=== PATIENT | male | born 1935 | race Caucasian/White ===

== ENCOUNTER 2020-06-05 12:17 | Outpatient (NON) | payer MEDICARE, SELFPAY ==
[2020-06-06 01:18] LABS: SARS-CoV-2 RNA PCR Negative
== END 2020-06-05 12:18 ==
PROVIDERS: PCP Family Medicine; Visit Provider Family Medicine
DX: Z20.828 Contact with and (suspected) exposure to other viral communicable diseases (principal); R06.02 Shortness of breath
CPT/HCPCS: 87635; C9803; U0003

== ENCOUNTER 2021-02-08 14:04 | Outpatient (CLI) | payer MEDICARE, SELFPAY ==
--- NOTE | ~2021-02-08 | CT_ITS ---
EXAMINATION: CT IAC/mastoids BI wo con DATE: 02/08/2021 14:43 INDICATION: Otalgia, right ear. TECHNIQUE: Computed tomography (CT) of the temporal bones was performed without intravenous contrast. Automated exposure control and iterative reconstruction technique were employed. The dose-length pro duct was 226.06 mGy-cm. COMPARISON: CT sinuses 06/30/2005 FINDINGS: There are likely changes of right ocular lens replacement surgery. RIGHT TEMPORAL BONE: The internal auditory canal, cochlea, vestibule, semicircular canals, vestibular aqueduct, carotid ca nal, jugular bulb, ossicles, facial nerve course, tympanic membrane, Prussak space, scutum, and exter nal auditory canal are normal. LEFT TEMPORAL BONE: The internal auditory canal, cochlea, vestibule, semicircular canals, vestibular aqueduct, carotid ca nal, jugular bulb, facial nerve course, ossicles, scutum, Prussak space, and tympanic membrane are no rmal. There is a small volume of material in left external auditory canal, likely cerumen. IMPRESSION: 1. Normal temporal bones. Reviewed, dictated and finalized at location A. IMPRESSION: 1. Normal temporal bones.
== END 2021-02-08 14:05 | disposition home or self-care (01) ==
PROVIDERS: PCP Family Medicine; Visit Provider Otolaryngology
DX: H92.01 Otalgia, right ear (principal)
CPT/HCPCS: 70480

== ENCOUNTER 2023-02-04 09:43 | Emergency (ER) | payer OTHER, MEDICARE, SELFPAY ==
--- NOTE | 2023-02-04 09:56 | ED.ANIMALBIT ---
HPI - Animal Bite General Chief Complaint: Animal Bite Stated Complaint: dog bite Time Seen by Provider: 02/04/23 09:56 Source: patient Mode of arrival: ambulatory Limitations: no limitations History of Present Illness HPI narrative: Patient is a 88-year-old male who presents with dog bite to right forearm yesterday. Patient states he washed it with soap and water and use alcohol. Patient states the swelling has gone down slightly using ice but it is still swollen bruised and tender. Patient states that his neighbor's dog and vaccinations are up-to-date. Patient unsure when last tetanus shot was. Denies any numbness tingling or weakness to hand or fingers. Denies any drainage from wounds. Related Data Home Medications Medication Instructions Recorded Confirmed aspirin 81 mg tablet,delayed 81 mg PO DAILY 01/28/21 02/04/23 release (Adult Low Dose Aspirin) lisinopril 40 mg tablet 40 mg PO DAILY 01/28/21 02/04/23 metoprolol succinate 25 mg 25 mg PO DAILY 01/28/21 02/04/23 tablet,extended release 24 hr pantoprazole 40 mg tablet,delayed 40 mg PO QAM 01/28/21 02/04/23 release Allergies Allergy/AdvReac Type Severity Reaction Status Date / Time No Known Allergies Allergy Verified 02/04/23 10:45 Review of Systems Review of Systems: All systems reviewed & are unremarkable except as noted in HPI and below Constitutional: Constitutional: Denies body ache(s), Denies chills, Denies fatigue, Denies fever(s), Denies headache(s), Denies malaise and Denies weakness Eyes: Eyes: Denies blurry vision, Denies irritation and Denies loss of vision ENT: Denies otalgia, Denies headache(s), Denies nasal discharge, Denies sinus pain and Denies sore throat Cardiovascular: Cardiovascular: Denies chest pain, Denies irregular heart rhythm and Denies dyspnea Respiratory: Respiratory: Denies dyspnea Gastrointestinal: Gastrointestinal: Denies abdominal pain, Denies melena, Denies hematochezia, Denies diarrhea, Denies nausea and Denies vomiting Musculoskeletal: Musculoskeletal: Denies back pain, Denies myalgias and Denies arthralgias Integumentary/Breasts: Skin/Breast: Denies pruritus and Denies rash Neurologic: Denies headache(s), Denies loss of vision and Denies weakness Psychiatric: Psychiatric: Reports no additional psychiatric complaints Endocrine: Endocrine: Denies fatigue PMFSH Past Medical History Medical History (Updated 02/04/23 @ 10:54 by Joann Joy APRN) Arthritis Atherosclerosis of aorta 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 Ear pain, right Gastro-esophageal reflux disease without esophagitis Hypertensive chronic kidney disease with stage 1 through stage 4 chronic kidney disease, or unspecified chronic kidney disease Mixed hyperlipidemia Prediabetes Stage 3a chronic kidney disease Surgical History Surgical History (Updated 12/05/22 @ 11:56 by Omari Grider MD) Presence of coronary angioplasty implant and graft Family History Family History Mother Cancer Other Diabetes mellitus Family history of cardiovascular disease Family history of malignant neoplasm Social History Social History (Updated 12/05/22 @ 11:15 by Lilia Miller MA) Smoking status: Former smoker Alcohol intake: never Substance use: never Substance use type: does not use Lack of Transportation: No Lack of Food: Never True Current Housing: I Have Housing Concerned About Future Housing: No Difficulty Paying Gas/Electric Bills: No Difficulty Paying for Meds: No Currently Unemployed: No Education: High School Diploma/GED Difficulty w/ Childcare or Family Care: No Living arrangements: with family Occupation/Education: retired Gender identity (if verbalized by the patient): Male Sexual Orientation (if Verbalized by the Patient): Straight or Heterosexual Comments At time of signature, agree
[2023-02-04 10:14] VITALS: BP 129/74; PULSE 71; RESP 18; TEMP 36.8; O2SAT 98
[2023-02-04] MEDS: TETANUS/DIPHTHERIA TOXOIDS ADSORB 0.5 ML VIAL (*BKC) IM (10:58)
== END 2023-02-04 11:07 | disposition home or self-care (01) ==
PROVIDERS: Emergency Provider Nurse Practitioner Family; PCP Family Medicine
DX: S51.831A Puncture wound without foreign body of right forearm, initial encounter (principal); W54.0XXA Bitten by dog, initial encounter; Z23 Encounter for immunization; Z87.891 Personal history of nicotine dependence; M19.90 Unspecified osteoarthritis, unspecified site; I70.0 Atherosclerosis of aorta; I25.10 Atherosclerotic heart disease of native coronary artery without angina pectoris; I13.10 Hypertensive heart and chronic kidney disease without heart failure, with stage 1 through stage 4 chronic kidney disease, or unspecified chronic kidney disease; N18.31 Chronic kidney disease, stage 3a; R73.03 Prediabetes; K21.9 Gastro-esophageal reflux disease without esophagitis
CPT/HCPCS: 90471; 90714; 99213; G0463

== ENCOUNTER 2023-09-12 13:05 | Outpatient (CLI) | payer MEDICARE, SELFPAY ==
--- NOTE | ~2023-09-12 | XR_ITS ---
XR hip RT 2V w AP pelvis 09/12/2023 13:43 Indication: Left hip pain Procedure: AP pelvis and 2 views right hip Comparison: No prior studies for comparison. Findings: There is bilateral osteoarthritis of the hips. There is lower lumbar spondylosis partially visualized. Pelvic rings are intact. Sacral foramen are symmetric. Impression: 1: Mild bilateral osteoarthritis of the hips. Reviewed, dictated and finalized at location L. Impression: 1: Mild bilateral osteoarthritis of the hips.
--- NOTE | ~2023-09-12 | XR_ITS ---
EXAMINATION: XR lumbar spine min 4V DATE: 09/12/2023 13:43 INDICATION: Low back pain TECHNIQUE: Anteroposterior, lateral, and bilateral oblique views of the lumbar spine, and cone-down l ateral view of the lumbosacral junction were obtained. COMPARISON: None. FINDINGS: Bone alignment is normal. There is no fracture. There is moderate loss of intervertebral di sc space height at L1-2 and L4-5. The vertebral body heights are maintained. There is severe facet radha int osteoarthritis at L4-5 and L5-S1. Surgical clips in the right upper quadrant are likely from prio r cholecystectomy. 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 IMPRESSION: 1. Moderate lumbar spondylosis without acute findings. Reviewed, dictated and finalized at location F.
--- NOTE | ~2023-09-12 | XR_ITS ---
XR knee RT 3V 09/12/2023 13:43 Indication: Right knee pain Procedure: 3 views right knee Comparison: No prior studies for comparison. Findings: Moderate joint effusion. Moderate tricompartment osteoarthritis. No fracture or traumatic m alalignment. No foreign bodies. Impression: 1: Moderate tricompartment osteoarthritis of the right knee. 2: Moderate knee effusion. Reviewed, dictated and finalized at location L. Impression: 1: Moderate tricompartment osteoarthritis of the right knee. 2: Moderate knee effusion.
== END 2023-09-12 13:06 | disposition home or self-care (01) ==
PROVIDERS: PCP Family Medicine; Visit Provider Family Medicine
DX: M25.561 Pain in right knee (principal); M54.30 Sciatica, unspecified side; M25.552 Pain in left hip; M43.06 Spondylolysis, lumbar region; M17.11 Unilateral primary osteoarthritis, right knee; M25.461 Effusion, right knee; M16.0 Bilateral primary osteoarthritis of hip
CPT/HCPCS: 72110; 73502; 73562

== ENCOUNTER 2023-11-30 13:00 | Outpatient (RCR) | payer MEDICARE, SELFPAY ==
--- NOTE | 2023-10-26 14:51 | PTOPEVAL1 ---
Assessment and note entered by Vinnie Wynn Evaluation Information Assessment Status Evaluation Diagnosis right knee pain, right knee OA Onset 04/19/23 Subjective Information Pt. reports that his right knee pain increased around 6 months ago. He reports that he was working on his basement recently, crawling on his knees, and noticed significant pain increase. He describes pain along the outside and inside of the right knee joint. He states that pain is increased with walking, stairs and long periods of standing. He reports that he had a recent injection which helped to reduce pain. He did undergo x-ray and states that he was told he is bone on bone. He reports that he is very active and states that his knee pain is making usual household activities difficult. He reports that he is having trouble standing off the toilet due to knee pain. he reports that his goal is to reduce his knee pain. Reported Pain Level Pain Score 4: Self Report Assessment PT Clinical Summary Pt. is an 88 year old male who enters the clinic with right knee pain due to OA. He presents with impaired gait, impaired knee active ROM, impaired l.e. strength, impaired flexibility and pain. Continued skilled PT is indicated in order to improve these areas to allow the pt. to be able to complete all IADL 's with improved comfort and efficiency. Plan of Care Interventions Electrical Stimulation,Gait Training,Hot Pack/Cold Pack,Manual Therapy,Neuro Re-education,Patient/ Caregiver Education,Therapeutic Activities, Therapeutic Exercise PT Services Indicated Yes Treatment Frequency and 2x/week x 8 visits Duration These treatments will address the objective and functional deficits as defined above. The patient will be advanced safely and appropriately in order for the patient to progress towards his/her prior level of function. Additional exercises will be introduced and as well as a comprehensive home exercise program upon discharge, if needed, ?to ensure carryover of functional gains achieved in the clinic. This treatment plan has been reviewed and agreement upon by the patient.
--- NOTE | 2023-10-26 14:52 | OPREHPOC ---
Outpatient Therapy Plan of Care This is a Multidisciplinary Plan of Care that may contain components documented by all disciplines (PT, OT, and ST.) PT Problem 1 PT Problem #1 Knowledge Deficit PT Goal 1 Goal Pt. will be independent with a HEP addressing strength and mobility Target Visit 2 PT Problem 2 PT Problem #2 Impaired Gait PT Goal 1 Goal Pt. will demonstrate equal right and left stance time with gait for 6 minute duration over a distance of 800' or more. Target Visit 8 PT Problem 3 PT Problem #3 Impaired Range of Motion PT Goal 1 Goal Pt. will achieve 0-125 degrees right knee active ROM to assist with improve tolerance to squatting and kneeling activities. Target Visit 8 PT Problem 4 PT Problem #4 Impaired Functional Mobil PT Goal 1 Goal Pt. will demonstrate 25% limitation or less with the LEFS indicating improved overall function. Target Visit 8
--- NOTE | 2023-11-30 13:53 | PTOPDC ---
Assessment and note entered by Vinnie Wynn Evaluation Information Assessment Status Discharge Diagnosis right knee pain, right knee OA Onset 04/19/23 Subjective Information Pt. reports that his right knee pain continues to fluctuate. He states that he notices little to no improvement since beginning therapy. He states that he will continue with exercise to maintain mobility in the right knee. Reported Pain Level Pain Score 3: Self Report Assessment PT Clinical Summary Pt. has attended a total of 7 treatment sessions. He demonstrates slight progress in regards to strength and mobility, however still provides consisted pain reports. At this time recommend the pt. continue with his HEP and follow up with his doctor regarding other options to address pain . Plan of Care PT Services Indicated No
== END 2023-11-30 15:11 | disposition home or self-care (01) ==
LOC: ANHPT 13:00
PROVIDERS: PCP Family Medicine; Visit Provider Orthopaedic Surgery
DX: M17.11 Unilateral primary osteoarthritis, right knee (principal)
CPT/HCPCS: 97014; 97016; 97110; 97140; 97161; G0283

== ENCOUNTER 2023-12-11 04:30 | Emergency (ER) | payer MEDICARE, SELFPAY ==
--- NOTE | ~2023-12-11 | XR_ITS ---
Portable chest x-ray Comparison: 08/16/2018 Clinical History: Cough Findings: Lungs are clear, without focal consolidation or pleural effusion. COPD pattern present. C ardiomediastinal silhouette is stable. Bones and soft tissues are unremarkable. Impression: COPD. Clear lungs. Reviewed, dictated and finalized at location . Impression: COPD. Clear lungs.
[2023-12-11 04:39] VITALS: BP 156/88; PULSE 69; PULSE 77; RESP 13; TEMP 37.1; O2SAT 100; O2SAT 98
--- NOTE | 2023-12-11 04:49 | ECG_ITS ---
Test Date: 2023-12-11 04:55:36 Measurements Intervals [place] Rate: 73 P: 58 DC: 182 QRS: 19 QRSD: 103 T: 64 QT: 384 QTc: 423 Interpretive Statements SINUS RHYTHM EARLY R-WAVE TRANSITION BORDERLINE ECG No previous ECG available for comparison Electronically Signed On 12-11-2023 07:29:35 CDT by Vinnie Piedra M.D.
[2023-12-11] MEDS: guaiFENesin/DEXTROMETHORPHAN 10 ML UDC PO (04:51)
[2023-12-11 05:11] LABS: Basophils Absolute Auto 0.1 K/mm3 (0.0-0.1); Basophils Percent Auto 0.6 % (0.2-1.2); Eosinophils Absolute Auto 0.4 K/mm3 (0-0.3); Eosinophils Percent Auto 4.8 % (0-4.4); Hematocrit 41.3 % (42.0-52.0); Hemoglobin 13.8 g/dL (14.0-18.0); Immature Granulocyte Absolute 0.04 K/mm3 (0.00-0.031); Immature Granulocyte Percent A 0.5 % (0-0.5); Lymphocytes Absolute Auto 1.93 K/mm3 (0.9-3.2); Lymphocytes Percent Auto 22.8 % (18.3-44.2); Mean Corpuscular HGB Conc 33.4 g/dl (32-36); Mean Corpuscular Hemoglobin 29.7 pg (26-34); Mean Platelet Volume 9.4 fl (7.4-10.4); Monocytes Absolute Auto 0.7 K/mm3 (0.1-0.6); Neutrophils Absolute Auto 5.4 K/mm3 (1.3-6.7); Neutrophils Percent Auto 63.3 % (45.5-73.1); Platelet Count Result 253 k/mm3 (150-375); Red Blood Count 4.64 M/mm3 (4.6-6.20); Red Cell Distribution Width 12.9 % (11.5-14.5); White Blood Count 8.5 K/mm3 (4.5-10.0)
[2023-12-11 05:15] VITALS: BP 124/80; PULSE 69; RESP 13; O2SAT 98
[2023-12-11 05:25] LABS: Alanine Aminotransferase 18 U/L (6-50); Albumin Level 4.4 g/dL (3.5-5.1); Alkaline Phosphatase 69 U/L (38-126); Anion Gap 12 mmol/L (4-12); Aspartate Amino Transferase 22 U/L (17-59); Bilirubin,Total 0.7 mg/dL (0.2-1.3); Blood Urea Nitrogen 30 mg/dL (9-20); Calcium 9.2 mg/dL (8.4-10.2); Carbon Dioxide 22 mmol/L (22-30); Chloride 105 mmol/L (98-107); Estimated CRCL calculation 41 ml/min; Estimated Glomerular Filt Rate 57; Glucose 122 mg/dL (65-110); Potassium 4.1 mmol/L (3.4-5.0); Sodium 139 mmol/L (137-145)
[2023-12-11 05:28] LABS: Influenza A QL RT-PCR Negative (Negative); Influenza B QL RT-PCR Negative (Negative); RSV RNA, RT-PCR Negative (Negative); SARS-CoV-2 RNA PCR Negative (Negative)
[2023-12-11 05:34] LABS: NT Pro B Type Natriuretic Pept 149 pg/mL (19.9-100)
--- NOTE | 2023-12-11 05:42 | ED.GENADULT ---
HPI - General Adult General Chief complaint: Upper Respiratory Infection Stated complaint: cough, wheezing Time Seen by Provider: 12/11/23 04:37 History of Present Illness HPI narrative: this is an 88-year-old male presenting with cough x 4-5 days. He has productive white sputum. He has seen his primary care physician for this and was prescribed doxycycline which she completed without any back. Patient notices that sometimes he has trouble coughing up the sputum is very thick. He denies fevers chills chest pain difficulty breathing or abdominal pain. Related Data Home Medications Medication Instructions Recorded Confirmed aspirin 81 mg tablet,delayed 81 mg PO DAILY 01/28/21 12/07/23 release (Adult Low Dose Aspirin) diphenhydramine 25 1 tablet PO QHS PRN 10/24/23 12/07/23 mg-acetaminophen 500 mg tablet (Tylenol PM Extra Strength) metoprolol tartrate 25 mg tablet 12.5 mg PO BID 12/07/23 12/07/23 Allergies Allergy/AdvReac Type Severity Reaction Status Date / Time No Known Allergies Allergy Verified 11/23/23 08:31 [facility] Past Medical History Medical History Arthritis Atherosclerosis of aorta Atherosclerosis of jamul coronary artery of jamul heart without angina pectoris Ear pain, right Gastro-esophageal reflux disease without esophagitis Hypertensive chronic kidney disease with stage 1 through stage 4 chronic kidney disease, or unspecified chronic kidney disease Mixed hyperlipidemia Prediabetes Stage 3a chronic kidney disease Surgical History Surgical History Presence of coronary angioplasty implant and graft Family History Family History Mother Cancer Other Diabetes mellitus Family history of cardiovascular disease Family history of malignant neoplasm Social History Social History Smoking status: Former smoker Alcohol intake: never Substance use: never Substance use type: does not use Do You Feel Safe in your Home?: Yes Lack of Transportation: No Lack of Food: Never True Current Housing: I Have Housing Concerned About Future Housing: No Difficulty Paying Gas/Electric Bills: No Difficulty Paying for Meds: No Currently Unemployed: No Education: High School Diploma/GED Difficulty w/ Childcare or Family Care: No Living arrangements: with family Occupation/Education: retired Gender identity (if verbalized by the patient): Male Sexual Orientation (if Verbalized by the Patient): Straight or Heterosexual Exam Narrative: APPEARANCE: No apparent distress. Head: atraumatic. EYES: EOMI, NOSE: Atraumatic NECK: Trachea midline RESPIRATORY: No increased rate of breathing, Speaking in full sentences, scattered rhonchi CARDIOVASCULAR: RRR, no peripheral edema ABDOMINAL: Non-distended soft nontender MUSCULOSKELETAl: No obvious deformities NEURO: Alert. Moving 4/4 extremities SKIN:: Warm, dry. Normal color PSYCHIATRIC: Normal affect Course Vital Signs Vital signs: Vital Signs Temperature 98.7 F 12/11/23 04:39 Pulse Rate 77 12/11/23 04:39 Respiratory Rate 13 12/11/23 04:39 Blood Pressure 156/88 H 12/11/23 04:39 Pulse Oximetry 100 12/11/23 04:39 Oxygen Delivery Room Air 12/11/23 04:39 Temperature 98.7 F 12/11/23 04:39 Pulse Rate 77 12/11/23 04:39 Respiratory Rate 13 12/11/23 04:39 Blood Pressure 156/88 H 12/11/23 04:39 Pulse Oximetry 100 12/11/23 04:39 Oxygen Delivery Room Air 12/11/23 04:39 Medical Decision Making MDM Narrative Medical decision making narrative: -Course: 88-year-old male presenting with 5 days of cough. patient is well-appearing without fevers. White count is normal. Chest x-ray without evidence of pneumonia. Patient likely has bronchitis. He notes that the cou
[2023-12-11 05:45] VITALS: BP 124/71; PULSE 66; RESP 98; O2SAT 13
== END 2023-12-11 06:40 | disposition home or self-care (01) ==
PROVIDERS: Emergency Provider Emergency Medicine; PCP Family Medicine
DX: J40 Bronchitis, not specified as acute or chronic (principal); E78.2 Mixed hyperlipidemia; I12.9 Hypertensive chronic kidney disease with stage 1 through stage 4 chronic kidney disease, or unspecified chronic kidney disease; N18.31 Chronic kidney disease, stage 3a; I25.10 Atherosclerotic heart disease of native coronary artery without angina pectoris; Z20.822 Contact with and (suspected) exposure to COVID-19; Z87.891 Personal history of nicotine dependence
CPT/HCPCS: 36415; 71045; 80053; 83880; 85025; 87637; 93005; 99283; A9270

== ENCOUNTER 2024-09-02 07:55 | Outpatient (CLI) | payer MEDICARE, SELFPAY ==
--- NOTE | ~2024-09-02 | MR_ITS ---
MR brain/brain stem wo con Ordering provider: Omari Grider MD History: 89 years Male with . G45.9 - Transient cerebral ischemic attack, unspecified . Comparison: June 28, 2013 Technique: MRI brain was performed without contrast. FINDINGS: BONES: Normal. CRANIOCERVICAL JUNCTION: normal. PITUITARY: Normal. MAJOR INTRACRANIAL VESSELS: Normal flow void. OPTIC NERVES AND CRANIAL NERVES VII AND VIII COMPLEXES: Grossly normal. BRAIN PARENCHYMA AND CSF SPACES: Mild nonspecific T2 white matter hyperintensities are seen in a alexia ateral periventricular and deep white matter distribution which are likely related to chronic ischemi c small vessel disease. Mild diffuse cortical atrophy. Old lacunar infarct in the right cerebellar h emisphere. The brainstem and cerebellum are normal. No acute or chronic intracranial hemorrhage. No e xtra axial fluid collections. Diffusion weighted and ADC mapping images reveal no recent ischemia. No midline shift or mass effect. PARANASAL SINUSES: Bilateral ethmoid sinus disease. MASTOIDS: Left mastoid air cells effusion. The SUPERFICIAL/SURROUNDING SOFT TISSUES: Normal. IMPRESSION: 1. No evidence of acute infarct or hemorrhage. 2. 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 3. Deep white matter ischemic changes with mild brain atrophy. Reviewed, dictated and finalized at location A.
--- OUTSIDE RECORDS SUMMARY | 2024-09-02 08:02 | XMS_ITS | Patient Health Summary ---
Author Organization [facility] [employer] Address [address] [place] [address] Care Team Providers Care Funeral Arrangement Director Name Role Phone Brii Benitez MD Primary Care Provider [phone] Note from [facility],non-owned Affiliates and Associated Physician Practices is amultiple site organization consisting of ambulatory clinics and hospital sitesin [place], [place], [place] and [place]. This disclosure is being madepursuant to the Care Everywhere program and may not contain all information available regarding this patient. Last updated 18.[facility] [employer] Allergies No known active allergies Medications * Be aware that medications may not be up to date on this document. Alwaysverify current medications with the patient. * lisinopril (PRINIVIL; ZESTRIL) 40 MG tablet Take 40 mg by mouth once daily. * metoprolol tartrate IR (LOPRESSOR) 25 MG tablet Take 25 mg by mouth 2 times daily. * clopidogrel (PLAVIX) 75 MG tablet Take 75 mg by mouth once daily. * simvastatin (ZOCOR) 80 MG tablet Take 80 mg by mouth at bedtime. * aspirin 81 MG chew tablet Take 81 mg by mouth once daily. * pantoprazole (PROTONIX) 40 MG packet Take 40 mg by mouth once daily. * niacin CR (NIASPAN) 1000 MG tablet Take 1,500 mg by mouth at bedtime. Social History Tobacco Use Types Packs/Day Years Used Date Smoking Tobacco: Former Tobacco Cessation:Counseling Given: Yes Comments:QUIT 29 YEARS AGO Alcohol Use Standard Drinks/Week Comments No 0 (1 standard drink = 0.6 oz pur e alcohol) Sex and Gender Information Value Date Recorded Sex Assigned at Not on file Gender Identity Not on file Sexual Orientation Not on file Last Filed Vital Signs Vital Sign Reading Time Taken Comments Blood Pressure 112/65 08/17/2011 1:30 PM [employer] Pulse 59 08/17/2011 1:30 PM [employer] Temperature 37.1 C (98.7 F) 08/17/2011 8:54 AM [employer] Respiratory Rate 18 08/17/2011 1:30 PM [employer] Oxygen Saturation 96% 08/17/2011 1:30 PM [employer] Inhaled Oxygen Concentration - - Weight 83 kg (183 lb) 08/17/2011 8:54 AM [employer] Height 182.9 cm (6') 08/17/2011 8:54 AM [employer] Body Mass Index 24.82 08/17/2011 8:54 AM [employer] Procedures * CARDIAC EKG ORDER(Performed 09/01/2011) * LAB RESULTS ORDER(Performed 09/01/2011) * CARDIAC PROCEDURE ORDER(Performed 09/01/2011) * CARDIAC CATH CONSULT(Performed 08/17/2011) Results * LAB RESULTS ORDER (09/01/2011 2:37 PM CDT) Narrative Transcriptions Document, Scanned - 09/01/2011 2:36 PM CDT Scanned Document LAB - THERAPEUTIC DR UG MONITORING ORDERABLES * CARDIAC EKG ORDER (09/01/2011 2:37 PM CDT) Narrative Transcriptions Document, Scanned - 09/01/2011 2:36 PM CDT Scanned Document CARDIAC SERVICES ORD ERABLES * CARDIAC PROCEDURE ORDER (09/01/2011 2:37 PM CDT) Narrative Transcriptions Document, Scanned - 09/01/2011 2:36 PM CDT Scanned Document CARDIAC SERVICES ORD ERABLES * CARDIAC CATH CONSULT (08/17/2011) 08/17/2011 Narrative Transcriptions Brii Benitez MD - 08/17/2011 2:08 PM CST [facility] Cardiac Cath [facility] CARDIAC CATHETERIZATION PATIENT: [facility]#: [id number] ADMIT DATE: 08/17/2011CCT#: [id number] PROCEDURE DATE: 08/17/2011DOB: 1935 PHYSICIAN: Brii Benitez, MDROOM: DPHCCCL REFERRING PHYSICIAN: BRII BENITEZ PROCEDURE: 1.Left heart catheterization. 2.Left coronary angiography. 3.Left ventriculography. 4.Ascending aortography. 5.Vascular access closure. INDICATION FOR PROCEDURE: Coronary artery disease, recurrent restingchest pain. INDICATION: This is a 76-year-old patient with a history of coronaryartery disease and prior stenting of the left anterior descending and theright coronary artery in 2004. He now has recurrent episodes of chestpain occurring at rest. It partially resolves with nitroglycerin. Healready had been on Protonix. He had upper endoscopy which wasunrevealing. He was then referred for angiography. PROCEDURE IN DETAIL: After obtaining informed consent, the patient wasbrought to the cardiac catheterization lab suite. He was prepped anddraped in the usual sterile fashion. Vascular access was obtained usingthe modified Seldinger technique. A #5 Fr sheath was inserted in theright femoral artery. Selective coronary cannulation was performed usingstandard Jonatan catheters. Left ventriculography was performed in theRAO projection using a pigtail, followed by left heart pullback.Ascending aortography was performed in the SAMI projection. At the end ofthe procedure, the sheath was removed and vascular access was closed usingAngio-Seal with good hemostasis. HEMODYNAMICS: LV Pressure: 125/10. Ascending Aortic Pressure: 125/70. LEFT VENTRICULOGRAPHY: Left ventriculography showed normal systolic wallmotion. Estimated ejection fraction is 65%. ASCENDING AORTOGRAPHY: This was performed to rule out aortic pathology asa cause of his chest discomfort. This showed a normal thoracic aortawithout evidence of dissection. There is no aortic insufficiency. CORONARY ARTERIES: The dominant right coronary artery had an upwardtakeoff with hicks's crook angulation. There is 40% mid stenosis andtandem 30% distal lesions. The distal vessel gives a medium sizedposterior descending branch which had patent stents in the proximalvessel. It gives a first small posterolateral branch and then a largesecond posterolateral branch. The posterolateral branch of the rightcoronary artery was angiographically normal. The left main coronary artery was angiographically normal. The large hightakeoff first obtuse marginal had 30% proximal stenosis. The secondobtuse marginal is a medium sized branching vessel that isangiographically normal. The distal vessel gives off small branches. Theleft anterior descending had 20% ostial stenosis. There is diffusecalcifications in the mid vessel associated with 40% stenosis. Thepreviously implanted stent in the distal vessel after the second diagonalwas widely patent. The rest of the left anterior descending had milddisease. IMPRESSION: 1.Angiographically mild to intermediate coronary artery disease withpatent previously implanted stents in the left anterior descending and theposterior descending artery branch of the right coronary artery.2.Normal left ventricular systolic function. 3.Normal left ventricular end-diastolic pressure. 4.Normal thoracic aortogram. 5.Successful vascular access closure. CARE PLAN: There are no high grade lesions to warrant intervention.Continuation of medical therapy is recommended. BRII BENITEZ MD SRB/JT #: [id number] CC:MD MANJIT DOYLE MD MEDICAL/SURGICAL CARDIAC CATHETERIZATION - DP Brii Benitez MD ECHO ORDERABLES [facility] Care Teams Funeral Arrangement Director Relationship Specialty [place] [id number] [facility] [place] [address] [place] [id number] PCP - General 08/17/11
--- OUTSIDE RECORDS SUMMARY | 2024-09-02 08:02 | XMS_ITS | Referral Summary ---
Author Organization [facility] Address [address] [place] [address] Care Team Providers Care Merchandising Internship Name Role Phone Fabricio Benitez MD Primary Care Provider Source Comments [facility],non-owned Affiliates and Associated Physician Practices is amultiple site organization consisting of ambulatory clinics and hospital sitesin [place], [place], [place] and [place]. This disclosure is being madepursuant to the Care Everywhere program and may not contain all information available regarding this patient. Last updated 18.[facility] Allergies No known active allergies Medications * Be aware that medications may not be up to date on this document. Alwaysverify current medications with the patient. Medication Sig Dispensed Refills Start Date End Date Status lisinopril (PRINIVIL; ZESTRIL) 40 MG tablet Take 40 mg by mouth once daily. Active metoprolol tartrate IR (LOPRESSOR) 25 MG tablet Take 25 mg by mouth 2 times daily. Active clopidogrel (PLAVIX) 75 MG tablet Take 75 mg by mouth once daily. Active simvastatin (ZOCOR) 80 MG tablet Take 80 mg by mouth at bedtime. Active aspirin 81 MG chew tablet Take 81 mg by mouth once daily. Active pantoprazole (PROTONIX) 40 MG packet Take 40 mg by mouth once daily. Active niacin CR (NIASPAN) 1000 MG tablet Take 1,500 mg by mouth at bedtime. Active Social History Tobacco Use Types Packs/Day Years [...] Comments Blood Pressure 112/65 08/17/2011 1:30 PM NUCLEAR WORKER TECHNICIAN Pulse 59 08/17/2011 1:30 PM NUCLEAR WORKER TECHNICIAN Temperature 37.1 C (98.7 F) 08/17/2011 8:54 AM NUCLEAR WORKER TECHNICIAN Respiratory Rate 18 08/17/2011 1:30 PM NUCLEAR WORKER TECHNICIAN Oxygen Saturation 96% 08/17/2011 1:30 PM NUCLEAR WORKER TECHNICIAN Inhaled Oxygen Concentration - - Weight 83 kg (183 lb) 08/17/2011 8:54 AM NUCLEAR WORKER TECHNICIAN Height 182.9 cm (6') 08/17/2011 8:54 AM NUCLEAR WORKER TECHNICIAN Body Mass Index 24.82 08/17/2011 8:54 AM NUCLEAR WORKER TECHNICIAN Plan of Treatment Not on file Care Teams Merchandising Internship Relationship Specialty Start [place] [id number] [id number] PCP - General 08/17/11
--- OUTSIDE RECORDS SUMMARY | 2024-09-02 08:02 | XMS_ITS | Continuity of Care Document ---
Author Organization [facility] Address [address] [place] [address] Phone Care Team Providers Care Project Economist Name Role Phone Collin Powers MD Unavailable Unavailable Advance Directives Directive Yes / No Effective Date File Name No Information Encounters Encounter Description Practice Location Reason(s) For Visit Diagnoses Date Provider Providers Copied on Encounter [facility], [id number] [place] [address] [address], [place], [place], [id number], [place] tel:[phone] [address] [facility] No Information Feb-2 6-200 6 Priya Polanco. [address], [place], [place], [id number], [place]. tel:[phone] Family History Family Member Type Diagnosis Age At Onset No Information Payers Payer name Insurance type Covered alliance party ID Authoriza tion(s) [place] [id number] Social History Type Description Quantity Date Captured Comments Sex Male Smoking Status No Information Chief Complaint And Reason For Visit No Information Reason For Referral Reason For Referral No Information History Of Present Illness Encounter Date Complaint History Of Prese nt Illness No Information Functional Status Date Functional Assessmen t No Information Instructions Date Instruction Additional Infor mation No Information Assessments Type Assessment Date No Information Patient Care Teams Name Effective Dates (start - stop) Status Members No Information
--- OUTSIDE RECORDS SUMMARY | 2024-09-02 08:02 | XMS_ITS | Clinical Summary ---
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 Gender Identity Not on file Sexual Orientation Not on file Plan of Treatment Health Maintenance Due Date Last Done Comments Hepatitis C Virus (HCV) Screening 1935 Zoster Immunization (1 of 2) 01/28/1986 Respiratory Syncytial Virus (RSV) Immunization (Adult) (1 - 1-dose 75+ series) 01/28/2011 Pneumococcal Immunization (50+ years) (2 of 2 - PPSV23) 03/20/2019 03/20/2018, 03/15/2015 Influenza Immunization (#1) 02/18/202410/2019, 03/26/2019, 03/16/2018, Additional history exists SARS-COV-2 Immunization ( season) 2024 DTaP/Tdap/Td Immunization Discontinued 06/18/2015 TdaP Immunization Completed 06/18/2015 Pneumococcal Immunization Combined Discontinued 03/20/2018, 03/15/2015 Hepatitis B Immunization Aged Out No longer eligible based on patient's age to complete this topic Meningococcal Immunization (ACWY) Aged Out No longer eligible based on patient's age to complete this topic Rotavirus Immunization Aged Out No lo nger eligible based on patient's age to complete this topic
--- OUTSIDE RECORDS SUMMARY | 2024-09-02 08:02 | XMS_ITS | Clinical Summary ---
Author Organization [facility] Address [address] [place] [address] Care Team Providers Care Supervisor Tubing Name Role Phone Fabricio Benitez MD Primary Care Provider [phone] Source Comments [facility],non-owned Affiliates and Associated Physician Practices is amultiple site organization consisting of ambulatory clinics and hospital sitesin [place], [place], [place] and [place]. This disclosure is being madepursuant to the Care Everywhere program and may not contain all information available regarding this patient. Last updated 18.[facility] Allergies No known active allergies Medications * [...] Comments Blood Pressure 112/65 08/17/2011 1:30 PM HIDE COOKING OPERATOR Pulse 59 08/17/2011 1:30 PM HIDE COOKING OPERATOR Temperature 37.1 C (98.7 F) 08/17/2011 8:54 AM HIDE COOKING OPERATOR Respiratory Rate 18 08/17/2011 1:30 PM HIDE COOKING OPERATOR Oxygen Saturation 96% 08/17/2011 1:30 PM HIDE COOKING OPERATOR Inhaled Oxygen Concentration - - Weight 83 kg (183 lb) 08/17/2011 8:54 AM HIDE COOKING OPERATOR Height 182.9 cm (6') 08/17/2011 8:54 AM HIDE COOKING OPERATOR Body Mass Index 24.82 08/17/2011 8:54 AM HIDE COOKING OPERATOR Plan of Treatment Health Maintenance Due Date Last Done Comments DTAP/TDAP/TD VACCINES (1 - Tdap) 01/28/1954 PNEUMOCOCCAL VACCINE 50+ (1 of 1 - PCV) 01/28/1986 ZOSTER VACCINE (1 of 2) 01/28/1986 Respiratory Syncytial Virus (RSV) Vaccine Pt: or over 60 yrs (1 - 1-dose 75+ series) 01/28/2011 COVID-19 VACCINE ( - 2023-2 5 season) 2024 INFLUENZA VACCINE (#1) 2024 DEPRESSION SCREENING 06/19/2024 HEPATITIS B VACCINE Aged Out No longe r eligible based on patient's age to complete this topic HIB VACCINE Aged Out No longer eligi ble based on patient's age to complete this topic HPV VACCINE Aged Out No longer eligi ble based on patient's age to complete this topic MENINGOCOCCAL (Group B) VACC INE SHARED DECISION-MAKING Aged Out No longer eligibl e based on patient's age to complete this topic MENINGOCOCCAL GROUPS A/C/Y/W VACCINE Aged Out No longer eligible b ased on patient's age to complete this topic Care Teams Supervisor Tubing Relationship Specialty [place] [id number] [facility] [address] [place] [address] PCP - General 08/17/11
--- OUTSIDE RECORDS SUMMARY | 2024-09-02 08:03 | XMS_ITS | Referral Summary ---
Author Organization [facility] [address] Address [address] [place] [address] Care Team Providers Care Diagram Clerk Name Role Phone Omari Grider MD Primary Care Provider [phone] Allergies No known active allergies Medications lisinopril (PRINIVIL,ZESTR [place]) 40 mg tablet take 1 tablet (40MG) by oral route every day 0 12/21/[address] (PROTONIX) 40 mg EC tablet take 1 tablet (40MG) by oral route every day 0 12/21/2010 Active diphenhydrAMINE -acetaminophen (TYLENOL PM EXTRA STRENGTH) 25-500 mg tablet take 1 tablet by oral route every day at bedtime 0 0 03/16/2015 Active aspirin (ADULT LOW DOSE ASPIRIN) 81 mg enteric coated tablet Take 1 tablet (81 mg total) by mouth daily 09/13/2018 Active melatonin 10 mg tablet Active rosuvastatin (CRESTOR) 20 mg tablet 12/01/2021 Active amLODIPine (NORVASC) 2.5 mg tablet 10/05/2022 Active metoprolol tartrate (LOPRESSOR) 25 mg immediate release tablet Take 0.5 tablets (12.5 mg total) by mouth 2 (two) times a day Active Active Problems Problem Noted Date Diagnosed Date At risk for falls 12/14/2022 Bradycardia 12/14/2022 Raynaud's phenomenon 07/13/2020 Dizziness 03/20/2019 GERD (gastroesophageal reflux disease) 9 Palpitations 09/13/2018 History of tobacco abuse 01/03/2018 S/P coronary artery stent placement 01/03/2018 Abdominal discomfort, epigastric 01/03/2018 Benign hypertension 12/30/2015 Overview (09/23/2016): HTN (hypertension), benign Coronary artery disease 07/01/2014 Overview (09/23/2016): Coronary arteriosclerosis in [place] artery Mixed hyperlipidemia 07/01/2014 Overview (09/23/2016): Mixed hyperlipidemia Resolved Problems Problem Noted Date Diagnosed Date Resolved Date Dyslipidemia 12/30/2015 07/26/2021 Overview (09/23/2016): Dyslipidemia Presence of stent in coronary artery 03/16/2015 03/20/2019 Overview (09/23/2016): S/P coronary artery stent placement Benign essential hypertension 07/01/2014 01/19/2021 Overview (09/23/2016): Benign essential hypertension Tobacco use 07/01/2014 12/02/2021 Overview (09/23/2016): Tobacco user Social History Tobacco Use Types Packs/Day Years Used Date Smoking Tobacco: Former Cigarettes Q uit: 1992 Smokeless Tobacco: Former Tobacco Cessation:Counseling Given: Not Answered Alcohol Use Standard Drinks/Week Comments No 0 (1 standard drink = 0.6 oz pur e alcohol) AUDIT-C Answer Date Recorded Q1: How often do you have a drink containing alc ohol? Never 04/18/2022 Average Number of Drinks Not on file 022 Frequency of Binge Drinking Not on file 03/21 Sex and Gender Information Value Date Recorded Sex Assigned at Not on file Legal Sex Male 7:[address] RE[address] Gender Identity Not on file Sexual Orientation Not on file Last Filed Vital Signs Vital Sign Reading Time Taken Comments Blood Pressure 124/60 03/05/2024 1:51 PM CDT Pulse 73 03/05/2024 1:51 PM CDT Temperature 36.8 C (98.2 F) 04/18/2022 1:06 PM CDT Respiratory Rate - - Oxygen Saturation 96% 03/05/2024 1:51 PM CDT Inhaled Oxygen Concentration - - Weight 75.8 kg (167 lb) 03/05/2024 1:51 PM CDT Height 182.9 cm (6') 03/05/2024 1:51 PM CDT Body Mass Index 22.65 03/05/2024 1:51 PM CDT Plan of Treatment Not on file Insurance MEDICARE [facility] Address: [address] [place], [place] [id number] [facility] Address: [address] [address] [place] [address] MEDICARE [employer] Care Teams Diagram Clerk Relationship Specialty Start Date End Date Omari Grider MD [address] [place] [id number] PCP - General 09/20/16
--- OUTSIDE RECORDS SUMMARY | 2024-09-02 08:03 | XMS_ITS | Clinical Summary ---
Author Organization [facility] [address] Address [address] [place] [address] Care Team Providers Care Shipping Receiving Manager Name Role Phone Omari Grider MD Primary Care Provider [phone] Allergies No known active allergies Medications lisinopril [...] disease 07/01/2014 Overview (09/23/2016): Coronary arteriosclerosis in [place] artery Mixed hyperlipidemia 07/01/2014 Overview (09/23/2016): Mixed hyperlipidemia Resolved Problems Problem Noted Date Diagnosed Date Resolved Date Dyslipidemia 12/30/2015 07/26/2021 Overview (09/23/2016): Dyslipidemia Presence of stent in coronary artery 03/16/2015 03/20/2019 Overview (09/23/2016): S/P coronary artery stent placement Benign essential hypertension 07/01/2014 01/19/2021 Overview (09/23/2016): Benign essential hypertension Tobacco use 07/01/2014 12/02/2021 Overview (09/23/2016): Tobacco user Surgical History Surgery Date Site/Laterality Comments CHOLECYSTECTOMY 06/19/1989 - 06/18/1990 HERNIA REPAIR 06/19/2018 - 06/18/2019 Medical History Medical History Date Comments Sinusitis Sinusitis Hx Other Medical Diverticulosis Gastroesophageal reflux disease GERD HTN (hypertension) Arthritis Family History Medical History Relation Name Comments No Known Problems Father Cancer Mother Heart disease Other 2 heart disease; Colon polyps Son Relation Name Status Comments Father Mother Other 1 Alive Other 2 Son Alive Social History Tobacco Use Types Packs/Day Years Used Date Smoking Tobacco: Former Cigarettes Q uit: 1991 Smokeless Tobacco: Former Tobacco Cessation:Counseling Given: Not [...] on file 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 Gender Identity Not on file Sexual Orientation Not on file Obstetrics History Last Filed Vital Signs Vital Sign Reading [...] 03/05/2024 1:51 PM CDT Plan of Treatment Health Maintenance Due Date Last Done Comments Depression Screening 1935 Fall Risk Assessment 1935 Hepatitis B Screening 01/28[birth year]1954 Well Visit 65+ 01/28/2001 Pneumococcal vaccine 65+ (2 of 2 - PPSV23) 03/20/2019 03/20/2018, 08/08/2017, 03/15/2015, Additional history exists Influenza Vaccine (#1) 2024 , 08/18/2019, 03/26/2019, Additional history exists DTaP/Tdap/Td Vaccine (3 - Td or Tdap) 02/04/2033 02/04/2023, 06/18/2015, 02/15/2005 Zoster Vaccine Completed 11/11/2020, 04/19, 09/17/2008 Insurance MEDICARE [facility] Address: [address] [address] [place] [address] [facility] MDCR HMO REF MEDICARE SOLUTIONS Care Teams Shipping Receiving Manager Relationship Specialty Start Date End Date Omari Grider MD [address] [place] [id number] PCP - General 09/20/16
== END 2024-09-02 07:56 | disposition home or self-care (01) ==
PROVIDERS: PCP Family Medicine; Visit Provider Family Medicine
DX: R90.82 White matter disease, unspecified (principal); Z86.73 Personal history of transient ischemic attack (TIA), and cerebral infarction without residual deficits; G45.9 Transient cerebral ischemic attack, unspecified
CPT/HCPCS: 70551